=== PATIENT | male | born 1970 | race Hispanic/Latino ===

== ENCOUNTER 2019-08-18 12:05 | Emergency (ER) | payer MEDICARE ==
[2019-08-18] MEDS ORDERED: KETOROLAC TROMETHAMINE 60 MG/2 ML VIAL ONE (13:14)
[2019-08-18] MEDS ORDERED: LIDOCAINE 5% TOPICAL PATCH TP ONE (13:14)
[2019-08-18] MEDS ORDERED: DIAZEPAM 5 MG TABLET ONE (13:15)
== END 2019-08-18 14:25 | disposition home or self-care (01) ==
LOC: EDH 12:05
DX: M54.16 Radiculopathy, lumbar region (principal)
CPT/HCPCS: 96372; 99283; J1885